=== PATIENT | male | born 1965 | race Caucasian/White ===

== ENCOUNTER 2016-09-03 11:38 | Emergency (ER) | payer OTHER ==
[2016-09-03 11:44] VITALS: BP 101/65; PULSE 104; TEMP 98.1; BMI 23.0
--- NOTE | 2016-09-03 12:54 | PDOC ---
History of Present Illness - General Chief Complaint: Wound Infection Stated Complaint: INFECTION/PAIN Time Seen by Provider: 09/03/16 12:11 History Source: Patient Exam Limitations: No Limitations - History of Present Illness Initial Comments: 09/03/16 12:53 50y M hx of newly diagnosed CMV sent by clinic for evaluation of intermitnte double vision and abnormal labs. The pt states he has had occasional double vision approx 1x a week for several months. His had lab work at the clinic and was told to come to [facility]. The pt denies any headache, current vision changes, numbness/tingling/weakness, neck pain, back pain, fever/chills, abd pain, chest pain, cough. pt states he used to use corrective lenses but hasnt for many years. PMD: Fletcher Mayberry at [facility] Past History - Past Medical History Allergies/Adverse Reactions: Allergies Allergy/AdvReac Type Severity Reaction Status Date / Time No Known Allergies Allergy Verified 09/03/16 11:44 Home Medications: Ambulatory Orders Multivit-Min/Iron Fum/Folic AC [Bughf-[id number]-[id number] Tablet] 1 each PO DAILY 09/03/16 HIV: Yes - Psycho/Social/Smoking Cessation Hx Anxiety: No Suicidal Ideation: No Smoking History: Never smoked Hx Alcohol Use: No Drug/Substance Use Hx: No Substance Use Type: None Review of Systems - Review of Systems Able to Perform ROS?: Yes Comments:: 09/03/16 13:02 Constitutional - no reported Fever, Chills, HEENT: intermittent double vision (non currently) no reported sore throat Respiratory: no reported cough, sob, hemoptysis Cardiac: no reported chest pain, palpitations, light headedness, leg swelling Abd/GI: no reported abd pain, nausea, vomiting, blood per rectum, melena, diarrhea : no reported dysuria, frequency, discharge Musculskelatal - no reported back pain, joint swelling skin - no reported bruising, erythema, rash neurological: no reported headache, numbness, focal weakness, tingling, ataxia, hematologic: no reported anemia, easy bruising, easy bleeding *Physical Exam - Vital Signs Last Vital Signs Temp Pulse Resp BP Pulse Ox 98.1 F 104 H 20 101/65 99 09/03/16 11:40 09/03/16 11:40 09/03/16 11:40 09/03/16 11:40 09/03/16 11:40 - Physical Exam Comments: 09/03/16 13:03 GENERAL: The patient is awake, alert, and fully oriented, Nontoxic - in no acute distress. HEAD: Normocephalic, atraumatic. EYES: extraocular movements intact, field of vision intact, PERRL, sclera anicteric, conjunctiva clear. ENT: Normal voice, Moist mucous membranes. NECK: Normal range of motion, supple LUNGS: Breath sounds equal, clear to auscultation bilaterally. No wheezes, no rhonchi, no rales. HEART: Regular rate and rhythm, normal S1 and S2 without murmur, rub or gallop. ABDOMEN: Soft, nontender, normoactive bowel sounds. No guarding, no rebound. . No CVA tenderness EXTREMITIES: Normal range of motion, no edema. No clubbing or cyanosis. No cords, erythema, or tenderness. NEUROLOGICAL: No facial assymetry, Normal speech, moving all 4 extrmities spontaneously and symmetrically PSYCH: Normal mood, normal affect. SKIN: several lesions/eschars on his head/neck without surrounding erythema/ induration Medical Decision Making - Medical Decision Making 09/03/16 12:56 talked to Daniele Mayberry pt had CMV +, CD4 101 VRL 2.2 million due to his vision changes, she is concerned about CMV retinintis which may need admission for IV therapy. pt denies any vision complaints currently. his visual field are intact acuity 20/100 on L eye, 20/100 on R eye. EOMI 09/03/16 13:07 09/03/16 15:[address] negative case dw Dr. Brenda mayberry, requests ophtho consultation case dw Dr. mando Cho (ophtho) requests sending him to his office for evaluation will send him to [address], pt states it will not be a problem and he will go now as the bus goes right there. the pt is currently asypmtomatic and feels fine. no vision changes (and none the last few days) if +retinitis, will come back fora monika for IV thereapy for management of CMV retinitis. othrwise will have pt fu with dr sage for outpatient mangaement of HIV/AIDS I discussed the physical exam findings, ancillary test results and final diagnoses with the patient. I answered all of the patient's questions. The patient was satisfied with the care received and felt comfortable with the discharge plan and treatment plan. The patient will call their primary care physician within 24 hours to arrange follow-up and will return to the Emergency Department with any new, persistent or worsening symptoms. *DC/Admit/Observation/Transfer Diagnosis at time of Disposition: Visual changes - Discharge Dispostion Disposition: HOME Condition at time of disposition: Improved Admit: No - Referrals Referrals: Nadia Jimenez MD [Staff Physician] - - Patient Instructions Additional Instructions: P{roceed directly to Dr. Mando Lyons office at [address] [place] [address] for further evaluation.
== END 2016-09-03 15:22 | disposition home or self-care (01) ==
LOC: JER 11:38
PROC: 4A07X0Z Measurement of Visual Acuity, External Approach (ICD-10-PCS; principal; 2016-09-03)
DX: H53.8 Other visual disturbances (principal); H53.2 Diplopia; B20 Human immunodeficiency virus [HIV] disease; B25.9 Cytomegaloviral disease, unspecified
CPT/HCPCS: 70450-TC; 99173; 99281-25

== ENCOUNTER 2023-10-09 11:52 | Emergency (ER) | payer OTHER ==
[2023-10-09 12:20] VITALS: RESP 20; BMI 25.1
[2023-10-09 12:52] VITALS: BP 110/80; PULSE 113; TEMP 97.9
[2023-10-09] MEDS ORDERED: ACETAMINOPHEN 325 MG TABLET (FP) ONE (13:05)
[2023-10-09] MEDS: ACETAMINOPHEN 325 MG TABLET (FP) PO ONE (13:08)
[2023-10-09 13:38] LABS: BASO % 0.4 % (0-2.0); EOS % 0.5 % (0-4.5); HEMATOCRIT 39.3 % (35.4-49); LYMPH % 31.2 % (8-40); MCH 30.1 pg (25.7-33.7); MEAN CELL VOLUME 91.3 fl (80-96); MEAN PLT VOLUME 7.5 fl (7.5-11.1); MONO % 14.8 % (3.8-10.2); NEUT % 53.1 % (42.8-82.8); PLATELET COUNT 88 10^3/uL (134-434); RDW 19.1 % (11.9-15.9); WHITE BLOOD COUNT 4.5 K/mm3 (4.0-10.0)
[2023-10-09 13:43] LABS: INR 1.06 (0.83-1.09)
[2023-10-09 13:52] LABS: BLOOD UREA NITROGEN 13.4 mg/dL (7-18)
[2023-10-09 13:53] LABS: ALBUMIN 3.4 g/dl (3.4-5.0); MAGNESIUM 1.9 mg/dL (1.8-2.4)
[2023-10-09 13:55] LABS: CREATININE 0.9 mg/dL (0.55-1.3)
[2023-10-09 13:57] LABS: BILIRUBIN,TOTAL 0.7 mg/dL (0.2-1); TOT PROT 7.8 g/dl (6.4-8.2)
== END 2023-10-09 15:08 | disposition home or self-care (01) ==
LOC: JER 11:52
DX: S01.01XA Laceration without foreign body of scalp, initial encounter (principal); M25.561 Pain in right knee; I48.91 Unspecified atrial fibrillation; W18.39XA Other fall on same level, initial encounter; Y93.01 Activity, walking, marching and hiking
CPT/HCPCS: 36415; 70450-TC; 71046-TC-FY; 80053; 80307; 83735; 84443; 84484; 85025; 85610; 86850; 86900; 86901; 93005; 93010; 99285-25